=== PATIENT | male | born 1965 | race Caucasian/White ===

== ENCOUNTER 2017-11-25 14:15 | Observation (INO) | payer OTHER ==
--- NOTE | 2017-11-25 14:38 | PDOC ---
History of Present Illness - General Chief Complaint: CVA/TIA Stated Complaint: LT SIDE WEAKNESS Time Seen by Provider: 11/25/17 14:23 - History of Present Illness Initial Comments: 11/25/17 15:30 The patient is a 52 year old male with a history of HTN, HLD, Afib, CVA with residual Left sided deficits who presents for evaluation of left hand weakness. The patient reports onset of left hand weakness and tingling at 10am this morning. He was concerned due to his prior cva prompting his presentation to the ED for evaluation. He notes that he generally has some mild left sided weakness due to his prior cva, but states that it is worse today. He otherwise denies headache, fevers, chills, vision changes, SOB, chest pain, nausea, vomiting, abdominal pain, or changes with urination or bowel movements. tPA Exclusion checklist 3-4.5h - Time Elapsed Date last known well: 11/25/17 Time last known well: 10:00 Elaspsed time: Day(s) and 7 Hour(s) and 6 Minutes - Thrombolytic Therapy Candidate Is patient eligible for thrombolytic therapy: No - Exclusion Criteria 3-4.5 hr SBP greater than 185 or DBP greater than 110mmHg despite tx: No Recent IC/spinal surgery,head trauma or stroke<3mos.: No Hx IC hemorrhage, IC neoplasm, AV malformation or aneurysm: No Active internal bleeding: No Blding diathesis(low plt ct, inc PTT,INR>1.7 or use of NOAC): No Symptoms suggest subarachnoid hemorrhage: No Arterial puncture at noncompressible site in previous 7 days: No Blood glucose concentration less than 50mg/dL (2.7mmol/L): No - Relative Exclusion Criteria 3-4.5 hr Life expectancy <1 yr or severe co-morbid illness: No : No Patient/family refused: No Rapid improvement: No Stroke severity too mild: Yes Recent acute NH (w/in previous 3 months): No Seizure at onset with postictal residual neuro impairments: No Major surgery or serious trauma w/in previous 14 days: No Recent GI or hemorrhage (w/in previous 21 days): No - Add'l Relative Exclusion 3-4.5 hr Age > 80: No NIHSS >25: No - Ineligibility reason(s) Reasons No tPA given: Outside of window - delayed arrival, See reason(s) noted above NIH Stroke Scale - Last Known Well Date/Time & Onset Date Last Known Well: 11/25/17 Time Last Known Well: 10:00 - Initial Evaluation Level of consciousness: Alert Ask patient the month and their age: Answers both correctly Ask patient to open & close eyes; make fist and let go: Obeys both correctly Best gaze (horizontal eye movement): Normal Visual field testing: No visual field loss Facial paresis (Show teeth/raise eyebrows/close eyes tight): Normal symmetrical movement Motor Function: Left Arm: Drift Motor Function: Right Arm: Normal (extends arm 90 (or 45) degrees for 10 seconds without drift Motor Function: Left Leg: Drift Motor Function: Right Leg: Normal (extends leg 30 degrees for 5 seconds without drift) Limb Ataxia: No ataxia Sensory(Use pinprick test arms,legs,trunk,face/side to side): Normal Best language (Describe picture, name items, read sentences): No Aphasia Dysarthria (read several words): Normal articulation Extinction and Inattention: No abnormality - Total Score NIH Stroke Scale Score: 2 Past History - Past Medical History Allergies/Adverse Reactions: Allergies Allergy/AdvReac Type Severity Reaction Status Date / Time No Known Allergies Allergy Verified 11/25/17 15:21 Review of Systems - Review of Systems Comments:: 11/25/17 15:48 Constitutional: No fevers, chills, fatigue, malaise HEENT: No Rhinorrhea, nasal congestion, visual changes Cardiovascular: No chest pain, syncope, palpitations, lightheadedness Respiratory: No Cough, SOB, Hemoptysis, Gastrointestinal: No Abdominal pain, Nausea, Vomiting, Constipation, Diarrhea, Melena Genitourinary: No Dysuria, Frequency, Urgency, Hesitancy, Hematuria, Flank pain Musculoskeletal: No Myalgia, arthralgia Skin: No rashes, itching, bruising, pallor Neurologic: Tingling, Weakness. No Headache, Dizziness, Numbness, Psychiatric: No Hallucinations. No SI or HI *Physical Exam - Physical Exam Comments: 11/25/17 15:48 General Appearance: Nourished. No Apparent Distress HEENT: EOMI, EMIR. No Pharyngeal Erythema, Tonsillar Exudate, Tonsillar Erythema Neck: No Cervical Lymphadenopathy Respiratory/Chest: Lungs Clear, Normal Breath Sounds. No Crackles, Rales, Rhonchi, Wheezing Cardiovascular: Regular Rhythm, Regular Rate. No Murmur, Gallops, Rubs Gastrointestinal/Abdominal: Normal Bowel Sounds, Soft. 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 Sensation to light touch and temperature intact bilaterally. Normal Visual field testing. Normal Finger to Nose and Heel to [facility]varez ED Treatment Course - LABORATORY CBC & Chemistry Diagram: 11/25/17 15:45 11/25/17 15:45 - RADIOLOGY Radiology Studies Ordered: Category Date Time Status HEAD CT (STROKE) [CT] Stat CT Scan 11/25/17 14:32 Ordered Medical Decision Making - Medical Decision Making 11/25/17 15:58 The patient is a 52 year old male with a history of HTN, HLD, Afib, CVA with residual Left sided deficits who presents for evaluation of left hand weakness. Differential includes but is not limited to: CVA, TIA, Peripheral Nerve palsy , infectious, metabolic derangement. Given the patient's history of CVA and presenting symptoms, we will obtain a cbc, cmp, lipid profile, head ct to evaluate for CVA, TIA although the patient is outside the window for TPA. He will likely require admission for further monitoring and neuro eval. We will continue to monitor and reassess. 11/25/17 17:06 CBC, cmp are unremarkable. Troponin is elevated to 0.12. Head CT is negative for any acute process. We discussed the case with Dr. Knight who agrees with admission for MRI evaluate and recommends cardiology consultation as well as treatment with ASA and Lipator. We discussed the case with the admitting team who accepted the patient for admission. *DC/Admit/Observation/Transfer Diagnosis at time of Disposition: Elevated troponin TIA (transient ischemic attack) Qualifiers: Transient cerebral ischemia type: unspecified Qualified Code(s): G45.9 - Transient cerebral ischemic attack, unspecified - Discharge Dispostion Condition at time of disposition: Stable Admit: Yes - Referrals - Patient Instructions - Post Discharge Activity
[2017-11-25 15:25] VITALS: BMI 42.8
[2017-11-25 16:10] LABS: EOS % 5.1 % (0-4.5); HEMATOCRIT 44.8 % (35.4-49); HEMOGLOBIN 15.3 GM/dL (11.7-16.9); LYMPH % 22.6 % (8-40); MCH 28.7 pg (25.7-33.7); MEAN CELL VOLUME 84.4 fl (80-96); MEAN PLT VOLUME 7.3 fl (7.5-11.1); NEUT % 65.3 % (42.8-82.8); PLATELET COUNT 263 K/MM3 (134-434); RBC 5.31 M/mm3 (4.00-5.60); RDW 15.2 % (11.9-15.9); WHITE BLOOD COUNT 9.9 K/mm3 (4.0-10.0)
--- NOTE | 2017-11-25 16:16 | PDOC ---
Attending Attestation - HPI HPI: 11/25/17 16:26 The patient is a 52 year old male, with a significant PMH of hypertension, hyperlipidemia, atrial fibrillation, CVA with residual left sided deficits, who presents to the emergency department with progressively worsening left hand weakness. The patient reports the left hand weakness and tingling began worsening around 10 am this morning. The patient reports he has residual left sided weakness secondary to a previous CVA but reports the left hand weakness is worse today which prompted the ED visit. The patient denies chest pain, shortness of breath, headache and dizziness. Denies fever, chills, nausea, vomit, diarrhea and constipation. Denies dysuria, frequency, urgency and hematuria. Allergies: NKA Documentation prepared by Ar Gonzalez, acting as lpn or medical assistant for Michele Feliciano MD. - Physicial Exam PE: 11/25/17 16:27 Vitals: Triage vital signs reviewed General Appearance: No acute distress, well nourished, well developed Head: Atraumatic Eyes: Pupils equal reactive round, extraocular movement intact Ears: TM's normal bilaterally Nose: Nares patent bilaterally; no nasal congestion Throat: Posterior oropharynx without erythema, mucous membranes moist Neck: Supple; No nuchal rigidity Chest Wall: Nontender Cardiac: Regular rate and rhythm, no murmurs, no rubs, no gallops Lungs: Clear to auscultation bilateral, good air movement bilaterally Abdomen: Soft, nondistended, normal bowel sounds, nontender to palpation Rectal: Exam deferred Extremities: Full range of motion to all extremities, no cyanosis, clubbing, or edema Skin: Warm and dry, no rashes or lesions, no rash, no petechiae Neuro: AOX3, (+) Difficulty finger to nose on left. (+) 4/5 strength in the left upper extremities. (+) Slight tongue deviation to the left. Sensation intact to all extremities <Ar Gonzalez - Last Filed: 11/25/17 16:26> - Resident Resident Name: Petar Medina - ED Attending Attestation I have performed the following: I have examined & evaluated the patient, The case was reviewed & discussed with the resident, I agree w/resident's findings & plan, Exceptions are as noted - Medical Decision Making 52 years old past medical history significant for hyperlipidemia hypertension A. fib CVA residual left-sided deficits presents to the ED with worsening left hand weakness since this morning at 10 AM On examination difficulty with motion picture critic and finger to nose and I H stroke scale score 2 We will obtain head CT consult neurology and admit for further evaluation. Dr. Rankin to follow up labs imaging and reasses. 430pm <Michele Feliciano - Last Filed: 11/25/17 16:33>
[2017-11-25 16:25] LABS: ALBUMIN 3.7 g/dl (3.4-5.0); ANION GAP 10 (8-16); BLOOD UREA NITROGEN 19 mg/dL (7-18); CALCIUM 9.5 mg/dL (8.5-10.1); CHLORIDE 105 mmol/L (98-107); CHOLESTEROL 141 mg/dL (50-200); CO2 26 mmol/L (21-32); CREATININE 0.7 mg/dL (0.7-1.3); GLUCOSE,RANDOM 111 mg/dL (74-106); POTASSIUM 3.9 mmol/L (3.5-5.1); SGOT/AST 28 U/L (15-37); SGPT/ALT 49 U/L (12-78); SODIUM 141 mmol/L (136-145)
[2017-11-25 16:27] LABS: ALK PHOS 60 U/L (45-117); BILIRUBIN,TOTAL 0.3 mg/dL (0.2-1.0); HDL CHOLESTEROL 30 mg/dL (40-60); LDL CHOLESTEROL (ONLY SJRH) 96 mg/dL (5-100); TOT PROT 6.7 g/dl (6.4-8.2); TRIGLYCERIDES 158 mg/dL (35-160)
[2017-11-25 16:29] LABS: INR 1.12 (0.82-1.09); PROTHROMBIN TIME (PATIENT) 12.7 SEC (9.98-11.88)
[2017-11-25] MEDS ORDERED: ATORVASTATIN CA 80 MG TABLET (FP) PO ONE (16:41)
[2017-11-25] MEDS ORDERED: ASPIRIN 81 MG CHEWABLE TABLETS PO ONE (16:41)
[2017-11-25] MEDS ORDERED: ASPIRIN 325 MG TABLET ONE (16:44)
[2017-11-25] MEDS ORDERED: ATORVASTATIN CA 80 MG TABLET (FP) ONE (16:44)
[2017-11-25] MEDS ORDERED: ATORVASTATIN CA 40 MG TABLET (FP) ONE (16:50)
[2017-11-25] MEDS ORDERED: ATORVASTATIN CA 40 MG TABLET (FP) PO ONE (16:55)
--- NOTE | 2017-11-25 17:15 | HP ---
CHIEF COMPLAINT: worsening left arm weakness, numbness and tingling of left hand fingers, unable to make a fist PCP: HISTORY OF PRESENT ILLNESS: Patient is a 52 year old male with a significant past medical history of hypertension, hyperlipidemia, CVA, Atril fibrillation (on Eliquis), left sided deficits 2/2 to previous CVA, sleep apnea and an implanted loop recorder. He presents to the ED to day with worsening left arm weakness. Since his last CVA , patent has had left sided deficits. However, early this morning around 10.a.m., he noted a new onset of worsening left arm pain, with numbness of tingling of all his fingers. He is unable to make a fist, and his arm is painful to movement. He denies any headaches, visual defects, fevers, chills, chest pain or shortness of breath. He denies any trauma to his left arm. On exam, patient was laying in the bed in no acute distress. Noted to have mild congestion best heard on anterior lungs. ER course was notable for: (1) trop 0.12 (2) head ct: mild to mod volume loss and minimal chronic microvascular ischemic disease changes. No gross acute intracranial pathology (3) asa 325, lipitor 40mg, duoneb Recent Travel: PAST MEDICAL HISTORY: as noted above PAST SURGICAL HISTORY: n/a Social History: Smoking: quit 4 years ago Alcohol: denies Drugs: denies Family History: Allergies No Known Allergies Allergy (Verified 11/25/17 15:21) PHYSICAL EXAMINATION Vital Signs - 24 hr 11/25/17 14:15 Temperature 98.3 F Pulse Rate 87 Respiratory 18 Rate Blood Pressure 118/70 O2 Sat by Pulse 95 Oximetry (%) GENERAL: Awake, alert, and fully oriented, in no acute distress. HEAD: Normal with no signs of trauma. EYES: Pupils equal, round and reactive to light, extraocular movements intact, sclera anicteric, conjunctiva clear. No lid lag. EARS, NOSE, THROAT: Ears normal, nares patent, oropharynx clear without exudates. Moist mucous membranes. NECK: Normal range of motion, supple without lymphadenopathy, JVD, or masses. LUNGS: mildly congested, no wheezing, no accessory muscle use, diminished bilateral lungs posteriorly HEART: Regular rate and rhythm, normal S1 and S2 without murmur, rub or gallop. ABDOMEN: Soft, nontender, not distended, normoactive bowel sounds, no guarding, no rebound, no masses. No hepatomegaly or splenomegaly. MUSCULOSKELETAL: Normal range of motion at all joints. No bony deformities or tenderness. No CVA tenderness. UPPER EXTREMITIES: Left arm 2/5, limited ROM. Right arm 5/5 LOWER EXTREMITIES: No peripheral edema. NEUROLOGICAL: Normal speech. Normal gait. PSYCHIATRIC: Cooperative. Good eye contact. Appropriate mood and affect. SKIN: Warm, dry, normal turgor, no rashes or lesions noted, normal capillary refill. Laboratory Results - last 24 hr 11/25/17 11/25/17 11/25/17 15:45 15:45 15:45 WBC 9.9 RBC 5.31 Hgb 15.3 Hct 44.8 MCV 84.4 MCH 28.7 MCHC 34.0 RDW 15.2 Plt Count 263 MPV 7.3 L Neutrophils % 65.3 Lymphocytes % 22.6 Monocytes % 6.0 Eosinophils % 5.1 H Basophils % 1.0 PT with INR 12.70 H INR 1.12 Sodium 141 Potassium 3.9 Chloride 105 Carbon Dioxide 26 Anion Gap 10 BUN 19 H Creatinine 0.7 Creat Clearance w eGFR > 60 Random Glucose 111 H Calcium 9.5 Total Bilirubin 0.3 AST 28 ALT 49 Alkaline Phosphatase 60 Creatine Kinase 180 Troponin I 0.12 H Total Protein 6.7 Albumin 3.7 Triglycerides 158 Cholesterol 141 Total LDL Cholesterol 96 HDL Cholesterol 30 L ASSESSMENT/PLAN: Patient is a 52 year old male with a significant past medical history of hypertension, hyperlipidemia, CVA, Atril fibrillation (on Eliquis), left sided deficits 2/2 to previous CVA, sleep apnea and an implanted loop recorder. He presents to the ED to day with worsening left arm weakness. Since his last CVA , patent has had left sided deficits. However, early this morning around 10.a.m., he noted a new onset of worsening left arm pain, with numbness of tingling of all his fingers. He is unable to make a fist, and his arm is painful to movement. He denies any headaches, visual defects, fevers, chills, chest pain or shortness of breath. He denies any trauma to his left arm. On exam, patient was laying in the bed in no acute distress. Noted to have mild congestion best heard on anterior lungs. Neuro: Rule out CVA/TIA Multiple risk factors: obesity, htn, dm, afib, known previous CVA Head CT negative Brain MRI ordered Neck MRA ordered by neuro Monitor neuro status Swallow eval as per protocol Physical therapy ASA 81mg daily, given ASA 324 in ED Lipitor Lipid panel in a.m. Card: Atrial Fibrillation, chronic Continue home eliquis 5mg BID Monitor on tele Echo Hypertension, chronic On Coreq BID Monitor BP in the setting of possible new CVA HLD, lipid panel in a.m. Elevated trop, on admission Trend trops rule out ACS Echo ordered Pulm: Mild congestion Chest xray Albuterol prn Endocrine Diabetes Mellitus Novolog SS BGMs Hmga1c in a.m. F.E.N. Fluids: PO adequate Electrolytes: monitor Nutrition: diabetic/low salt Prophy: DVT: on eliquis GI: Protonix Disposition. full code. Hospitalist Screening - Colonoscopy Questionnaire Colonoscopy Questionnaire: Colonoscopy Questionnaire
[2017-11-25] MEDS ORDERED: ALBUTEROL SO4 0.083% IH SOL 2.5 MG/3 ML VIAL.NEB. NEB PRN (17:34)
[2017-11-25] MEDS ORDERED: ALBUTEROL SO4 2.5/IPRATROPIUM 0.5 INH SOL 3 ML VIAL.NEB. NEB ONE ×2 (17:45→18:37)
[2017-11-25] MEDS ORDERED: traMADol HCL 50 MG TABLET PO ONE (17:45)
--- NOTE | 2017-11-25 18:31 | CON.NEURO ---
Consult - Alcohol/Substance Use Hx Alcohol Use: No - Smoking History Smoking history: Unknown if ever smoked Have you smoked in the past 12 months: No Home Medications - Allergies Allergies/Adverse Reactions: Allergies Allergy/AdvReac Type Severity Reaction Status Date / Time No Known Allergies Allergy Verified 11/25/17 15:21 Physical Exam-Neuro Vital Signs: Vital Signs Temperature 98.3 F 11/25/17 14:15 Pulse Rate 87 11/25/17 14:15 Respiratory Rate 18 11/25/17 14:15 Blood Pressure 118/70 11/25/17 14:15 O2 Sat by Pulse Oximetry (%) 95 11/25/17 14:15 Labs: CBC, BMP 11/25/17 15:45 11/25/17 15:45 INR, PTT INR 1.12 (0.82-1.09) 11/25/17 15:45 Assessment/Plan cc left arm leg weakness since november 25 morning and drooling of mouth HPI 52 year old male hsitory of DM,HTN , HLD Atrial fibrillation, with left sided residual deficit. He taks aspirin statin and lipitor at home. He has CEA in past on rightside. Patient developed sudden onset left arm weaknss, and leg weakness and he feels there was some tonic movement of left finger. He was also drooling. His ct scan of brain Past Medical History as above Allergies: NKA Medication ? Eliquis , lipitor 40 mg and aspirin 325 mg once a day PMH,SH,ROS reviewed in chart He works for [employer], quiet smoking one year ago Neurological Examination Alert oriented x 3, speech is normal, able to repeat no facial droopiness, eomi, and pupils reactive left hand manager estate weaknes supto 4- and left lower extremity is grade 4 specially hip flexion and knee extension sensation is normal ct head unremarkable Assessment- Suspect stroke on right mca , with worsening of left arm and leg weakness, as there is tonic activity of hand I suspect focal seizure with todds parlaysis is also on differential Plan- continue aspirin and ? eliquis - increase lipitor to 80 mg once a day mri of brain and mra of neck - eeg - if mri negtiave, consider adding keppra empirically neuro check, pt and speech eval thanks for consult, would follow with primary William Knight MD
[2017-11-25] MEDS ORDERED: traMADol HCL 50 MG TABLET ONE (18:37)
[2017-11-25] MEDS ORDERED: ACETAMINOPHEN 325 MG TABLET (FP) PO PRN (20:53)
[2017-11-25] MEDS ORDERED: ATORVASTATIN CA 40 MG TABLET (FP) PO SCH (22:00)
[2017-11-25] MEDS: ATORVASTATIN CA 80 MG TABLET (FP) PO SCH (22:48)
[2017-11-25] MEDS ORDERED: CARVEDILOL 3.125 MG TABLET (FP) ONE (22:54)
[2017-11-25] MEDS: APIXABAN 5 MG TABLET PO SCH (23:00)
[2017-11-25] MEDS: CARVEDILOL 6.25 MG TABLET (FP) PO SCH (23:01)
[2017-11-25] MEDS: INSULIN SLIDING SCALE (NOVOLOG) 1 VIAL SQ SCH (23:28)
[2017-11-25] MEDS ORDERED: oxyCODONE HCL 5 MG TABLET PO ONE (23:45)
[2017-11-26] MEDS ORDERED: INSULIN (NOVOLOG) ASPART 100 UNITS/ML 10ML VIAL ONE (06:00)
[2017-11-26] MEDS: INSULIN SLIDING SCALE (NOVOLOG) 1 VIAL SQ SCH ×4 (06:03→21:37)
--- NOTE | 2017-11-26 09:30 | EKG ---
Test Reason : Blood Pressure : / mmHG Vent. Rate : 087 BPM Atrial Rate : 087 BPM P-R Int : 176 ms QRS Dur : 096 ms QT Int : 368 ms P-R-T Axes : 037 -19 049 degrees QTc Int : 442 ms NORMAL SINUS RHYTHM INCOMPLETE RIGHT BUNDLE BRANCH BLOCK INFERIOR INFARCT , AGE UNDETERMINED ABNORMAL ECG NO PREVIOUS ECGS AVAILABLE Confirmed by CARMEN RAMIREZ MD ([id number]) on 11/26/2017 9:29:37 AM Referred By: Confirmed By:CARMEN RAMIREZ MD
[2017-11-26] MEDS ORDERED: PT OWN MED DRAWER 7, Y5N ONE (09:50)
[2017-11-26 09:53] LABS: URINE APPEARANCE CLEAR; URINE BILIRUBIN NEGATIVE (<2.0 mg/dL); URINE BLOOD NEGATIVE (NEGATIVE); URINE COLOR LTYELLOW; URINE GLUCOSE (UA) 3+ (NEGATIVE); URINE KETONE NEGATIVE (NEGATIVE); URINE LEUK ESTERASE NEGATIVE (NEGATIVE); URINE NITRITE NEGATIVE (NEGATIVE); URINE UROBILINOGEN NEGATIVE mg/dL (0.2-1.0)
[2017-11-26] MEDS: traMADol HCL 50 MG TABLET PO PRN ×2 (09:53→21:39)
[2017-11-26] MEDS: APIXABAN 5 MG TABLET PO SCH ×2 (09:53→21:36)
[2017-11-26] MEDS: ASPIRIN COATED 81 MG TABLET.EC PO SCH (09:53)
[2017-11-26] MEDS: CARVEDILOL 6.25 MG TABLET (FP) PO SCH ×2 (09:53→21:36)
[2017-11-26] MEDS: SERTRALINE HCL 50 MG TABLET (FP) PO SCH (09:56)
[2017-11-26] MEDS: LISINOPRIL 20 MG TABLET (FP) PO SCH (09:56)
[2017-11-26 09:59] LABS: URINE PROTEIN 2+ (NEGATIVE)
[2017-11-26 10:01] LABS: URINE MUCUS RARE
--- NOTE | 2017-11-26 11:07 | CONSULT ---
Admitting History and Physical - Primary Care Physician PCP: Iirs Bates - Admission History of Present Illness: Per EMR: Patient is a 52 year old male with a significant past medical history of hypertension, hyperlipidemia, CVA, Atril fibrillation (on Eliquis), left sided deficits 2/2 to previous CVA. He presents to the ED to day with worsening left arm weakness. Since his last CVA, patent has had left sided deficits. However , early this morning around 10.a.m., he noted a new onset of worsening left arm pain, with numbness of tingling of all his fingers. He is unable to make a fist , and his arm is painful to movement. He denies any headaches, visual defects, fevers, chills, chest pain or shortness of breath. He denies any trauma to his left arm. On exam, patient was laying in the bed in no acute distress. Noted to have mild congestion best heard on anterior lungs. He feels his speech and swallowing are unchanged. Upon review of pt's medical history and discussing PMH, I enquired about audible nasal emission/snorting sounds, suspecting possible velar weakness post stroke. Pt reports he has severe sleep apnea, sleeps with CPAP machine nightly on one of the highest settings and takes 2 medications for ramy/sleep. He then said "Maybe that's why I'm so tired today." Reported to nursing. History Source: Patient, Medical Record Limitations to Obtaining History: No Limitations - Smoking History Smoking history: Former smoker Have you smoked in the past 12 months: No If you are a former smoker, when did you quit?: 5 years ago - Alcohol/Substance Use Hx Alcohol Use: No History - Admission Reason For Visit: ELEVATED TROPONIN/ TRANSIENT CEREBAL ISCHEMIA - Diagnostics X-ray: Report Reviewed CT Scan: Report Reviewed (mild to mod volume loss and minimal chronic microvascular ischemic disease changes. No gross acute intracranial pathology) - General Mental Status: Alert and Oriented, Awake and Alert, Able to Follow Commands Attention: Intact Ability to Follow Directions: Excellent Head/Neck Control: WFL - Hearing Hearing: Normal Hearing Aide: No Speech Evaluation - Communication Primary Language: GEORGIAN Communication: Yes: Within Normal Limits, Dysarthria Oral Expression Ability: Yes: Mild Impairment (Mild imprecision, snorting/weak velum?.Baseline? Denies altered speech.) - Speech Production Able to Make Needs Known: Yes: Mildly Impaired - Speech Characteristics Voice Loudness: Normal Voice Pitch: Yes: Mildly Low Voice Phonatory-based Quality: Yes: Normal Speech Clarity: < 100% Nasal Resonance: Nasal Emission Articulation: Yes: Imprecise (slight) - Language/Auditory Comprehension Follows: Yes: 2 Stage Simple Commands Observation: Able to respond to yes/no queries: Yes, Yes/No Confusion: No, Comprehends Conversational Speech: Yes - Language/Verbal Expression Able to Respond to Simple Queries: Yes: WNL Able to Communicate Wants and Needs: Yes: WNL Functional Communication Status: Yes: WNL - Memory/Perception snf Memory: Yes: WNL Short Term Memory: Yes: WNL - Swallow Evaluation/Bedside Assessment Current Nutritional Intake: Regular, Thin Liquids Oral Secretions: Yes: WFL Dentition: Yes: Adequate, Dental Appliance Upper, Dental Fit Adequate Facial Symmetry at Rest: Symmetrical Facial Symmetry on Retraction: Symmetrical Facial Movement: Controlled Jaw Position: Open at Rest Against Resistance Opening: Normal Against Resistance Closing: Normal Pucker Lips: Normal Smile: Normal Lingual Movement: Normal, Symmetric Lingual Speed of Movement: Normal Lingual Movement Strgth Against Opposition: Normal Lingual Movement Characteristics: Normal Velopharyngeal Movement: Reduced Elevation (possibly untimely. Able to impound air into oral cavity.) Labial Seal: WFL Chewing: WFL Oral Prep Time: WFL A-P Transit: WFL Pocketing: None Timing of Swallow: WFL Coughing/Throat Clear: No Change in Voice: No Recommendations - Speech Evaluation, Impression/Plan Impression: Pt with h/o significant Sleep apnea. Sleeps with CPAP machine. Swallowing overtly intact. Mild dysarthria? reports this is his baseline? old cva.Cognition intact. - Dysphagia Impressions/Plan Dysphagia Impressions: No Impairment *Silent aspiration: cannot be R/O at bedside Recommendations: Modified Barium Swallow (if congestion, fever, signs of difficulty.), Other (consult/CPAP machine) - Recommendations Diet Consistency: Regular Medication Administration: Whole with water Liquids: Thin Liquids
--- NOTE | 2017-11-26 11:11 | CON.CARD ---
Cardiology Consult (text) - Consultation Consultation Note: cc: left hand pain/weakness hpi: 52 m hx htn, hld, pafib, cva, cea here with left hand pain/weakness. No cp, sob, palps, dizzy, loc, pnd, orthopnea, le edema. Being evaluated by neuro , no acute cva suspected. 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 pmh: per hpi psh: cea social: no tob fam: no premature cad, scd ros: per hpi; no nvd, cough, mont[place], vision changes, gib ,hematuria, dysuria meds: Home Medications Medication Instructions Recorded Apixaban [Eliquis] 5 mg PO BID 11/25/17 Armodafinil [Nuvigil] 200 mg PO DAILY 11/25/17 Aspirin [ASA -] 325 mg PO DAILY 11/25/17 Atorvastatin Ca [Lipitor] 40 mg PO DAILY 11/25/17 Bupropion HCl [Wellbutrin Xl] 300 mg PO DAILY 11/25/17 Carvedilol [Coreg] 6.25 mg PO BID 11/25/17 Empagliflozin [Jardiance] 10 mg PO DAILY 11/25/17 Fenofibrate,Micronized 130 mg PO DAILY 11/25/17 [Fenofibrate] Insulin Regular, Human [Humulin R 120 unit SQ BID 11/25/17 U-500 Kwikpen] Lisinopril 20 mg PO DAILY 11/25/17 Sennosides [Senna] 8.6 mg PO DAILY 11/25/17 Sertraline HCl 100 mg PO DAILY 11/25/17 metFORMIN XR [Glucophage *Xr* -] 750 mg PO DAILY 11/25/17 pe: Vital Signs Period Temp Pulse Resp BP Sys/Yoder Pulse Ox Last 24 Hr 97.9 F-98.9 F 80-92 16-20 100-133/65-80 94-95 nad no jvd rrr s1s2 no mrg cta bl nl eff aaox3 no le e/c/c abd nt nd pos bs no jaundice diaphoresis pos dp pt Laboratory Last Values WBC 9.9 K/mm3 (4.0-10.0) 11/25/17 15:45 RBC 5.31 M/mm3 (4.00-5.60) 11/25/17 15:45 Hgb 15.3 GM/dL (11.7-16.9) 11/25/17 15:45 Hct 44.8 % (35.4-49) 11/25/17 15:45 MCV 84.4 fl (80-96) 11/25/17 15:45 MCH 28.7 pg (25.7-33.7) 11/25/17 15:45 MCHC 34.0 g/dl (32.0-35.9) 11/25/17 15:45 RDW 15.2 % (11.9-15.9) 11/25/17 15:45 Plt Count 263 K/MM3 (134-434) 11/25/17 15:45 MPV 7.3 fl (7.5-11.1) L 11/25/17 15:45 Neutrophils % 65.3 % (42.8-82.8) 11/25/17 15:45 Lymphocytes % 22.6 % (8-40) 11/25/17 15:45 Monocytes % 6.0 % (3.8-10.2) 11/25/17 15:45 Eosinophils % 5.1 % (0-4.5) H 11/25/17 15:45 Basophils % 1.0 % (0-2.0) 11/25/17 15:45 PT with INR 12.70 SEC (9.98-11.88) H 11/25/17 15:45 INR 1.12 (0.82-1.09) 11/25/17 15:45 Sodium 141 mmol/L (136-145) 11/25/17 15:45 Potassium 3.9 mmol/L (3.5-5.1) 11/25/17 15:45 Chloride 105 mmol/L (98-107) 11/25/17 15:45 Carbon Dioxide 26 mmol/L (21-32) 11/25/17 15:45 Anion Gap 10 (8-16) 11/25/17 15:45 BUN 19 mg/dL (7-18) H 11/25/17 15:45 Creatinine 0.7 mg/dL (0.7-1.3) 11/25/17 15:45 Creat Clearance w eGFR > 60 (>60) 11/25/17 15:45 POC Glucometer 153 UNITS (80-120) 11/26/17 05:42 Random Glucose 111 mg/dL (74-106) H 11/25/17 15:45 Calcium 9.5 mg/dL (8.5-10.1) 11/25/17 15:45 Total Bilirubin 0.3 mg/dL (0.2-1.0) 11/25/17 15:45 AST 28 U/L (15-37) 11/25/17 15:45 ALT 49 U/L (12-78) 11/25/17 15:45 Alkaline Phosphatase 60 U/L (45-117) 11/25/17 15:45 Creatine Kinase 180 IU/L (39-308) 11/25/17 15:45 Creatine Kinase Index 1.7 % (0.0-5.0) 11/25/17 15:45 CK-MB (CK-2) 3.102 ng/mL (0.5-3.6) 11/25/17 15:45 Troponin I 0.11 ng/ml (0.00-0.05) H 11/25/17 23:13 Total Protein 6.7 g/dl (6.4-8.2) 11/25/17 15:45 Albumin 3.7 g/dl (3.4-5.0) 11/25/17 15:45 Triglycerides 158 mg/dL (35-160) 11/25/17 15:45 Cholesterol 141 mg/dL (50-200) 11/25/17 15:45 Total LDL Cholesterol 96 mg/dL (5-100) 11/25/17 15:45 HDL Cholesterol 30 mg/dL (40-60) L 11/25/17 15:45 Urine Color Ltyellow 11/26/17 04:21 Urine Appearance Clear 11/26/17 04:21 Urine pH 5.0 (5.0-8.0) 11/26/17 04:21 Ur Specific [place] 1.028 (1.001-1.035) 11/26/17 04:21 Urine Protein 2+ (NEGATIVE) H 11/26/17 04:21 Urine Glucose (UA) 3+ (NEGATIVE) H 11/26/17 04:21 Urine Ketones Negative (NEGATIVE) 11/26/17 04:21 Urine Blood Negative (NEGATIVE) 11/26/17 04:21 Urine Nitrite Negative (NEGATIVE) 11/26/17 04:21 Urine Bilirubin Negative (<2.0 mg/dL) 11/26/17 04:21 Urine Urobilinogen Negative mg/dL (0.2-1.0) 11/26/17 04:21 Ur Leukocyte Esterase Negative (NEGATIVE) 11/26/17 04:21 Urine WBC (Auto) 1 /hpf (3-5) 11/26/17 04:21 Urine RBC (Auto) <1 /hpf (0-3) 11/26/17 04:21 Urine Mucus Rare 11/26/17 04:21 cxr: clear lungs ecg: sr, nl intervals, irbbb, no st changes tele: sr echo 11/2017: tds; nl lv/rv, no sig valve path, mod lae a/p: 52 m hx htn, hld, pafib, cva, cea here with left hand pain/weakness. htn: -cont home arlene, coreg pafib: -in sr -cont home bb -cont ac with eliquis hld: -cont statin cva: -plans per neuro borderline trops: -borderline values with nl ck, not c/w acs -echo with nl lvef -pt with no cardiac sxs -no signs acs
--- NOTE | 2017-11-26 14:01 | PN ---
Progress Note (short form) - Note Progress Note: PULMONARY CONSULTATIN DICTATED 11/26/17 IMP CVA PAF HTN COPD MIRIAM ON CPAP DM + TROPONIN MORBID OBESITY PLAN AC ASA CPAP [id number] AT NIGHT NEURO W/U PER NEUROLOGY TREND TROPONIN INHALED BRONCHODILATORS PRN PFTS OUTPATIENT DR ARELLANO Problem List - Problems (1) CVA (cerebral vascular accident) Code(s): I63.9 - CEREBRAL INFARCTION, UNSPECIFIED (2) Elevated troponin Code(s): R74.8 - ABNORMAL LEVELS OF OTHER SERUM ENZYMES (3) PAF (paroxysmal atrial fibrillation) Code(s): I48.0 - PAROXYSMAL ATRIAL FIBRILLATION (4) Sleep apnea Code(s): G47.30 - SLEEP APNEA, UNSPECIFIED (5) HTN (hypertension) Code(s): I10 - ESSENTIAL (PRIMARY) HYPERTENSION (6) HLD (hyperlipidemia) Code(s): E78.5 - HYPERLIPIDEMIA, UNSPECIFIED (7) Morbid obesity Code(s): E66.01 - MORBID (SEVERE) OBESITY DUE TO EXCESS CALORIES (8) COPD (chronic obstructive pulmonary disease) Code(s): J44.9 - CHRONIC OBSTRUCTIVE PULMONARY DISEASE, UNSPECIFIED
--- NOTE | 2017-11-26 14:33 | PN ---
Physical Exam: SUBJECTIVE: Patient seen and examined at the bedside. Patient still having left arm deficit, denies trauma. 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 OBJECTIVE: Plan was to repeat imaging with brain MRI, and neck MRA, however pt has an implanted loop recorder. Will need [employer] to interrogate device prior to MRI as there is a risk of losing all information as well as damage to device ( discussed with MRI). Also discussed with Neuro. Will order CT Brain with contrast now as patient's symptoms persist.Will image left ext for DVT and xray same. Vital Signs Period Temp Pulse Resp BP Sys/Yoder Pulse Ox Last 24 Hr 97.9 F-98.9 F 79-92 16-20 100-133/65-80 94-95 GENERAL: The patient is awake, alert, and fully oriented, in no acute distress. HEAD: Normal with no signs of trauma. EYES: PERRL, extraocular movements intact, sclera anicteric, conjunctiva clear. No ptosis. ENT: Ears normal, nares patent, oropharynx clear without exudates, moist mucous membranes. NECK: Trachea midline, full range of motion, supple. LUNGS: Breath sounds equal, clear to auscultation bilaterally, no wheezes, no crackles, no accessory muscle use. HEART: Regular rate and rhythm, S1, S2 without murmur, rub or gallop. ABDOMEN: Soft, nontender, nondistended, normoactive bowel sounds, no guarding, no rebound, no hepatosplenomegaly, no masses. EXTREMITIES: 2+ pulses, warm, well-perfused, no edema. NEUROLOGICAL: Cranial nerves II through XII grossly intact. Normal speech, gait not observed. PSYCH: Normal mood, normal affect. SKIN: Warm, dry, normal turgor, no rashes or lesions noted Laboratory Results - last 24 hr 11/25/17 11/25/17 11/25/17 15:45 15:45 15:45 WBC 9.9 RBC 5.31 Hgb 15.3 Hct 44.8 MCV 84.4 MCH 28.7 MCHC 34.0 RDW 15.2 Plt Count 263 MPV 7.3 L Neutrophils % 65.3 Lymphocytes % 22.6 Monocytes % 6.0 Eosinophils % 5.1 H Basophils % 1.0 PT with INR 12.70 H INR 1.12 Sodium 141 Potassium 3.9 Chloride 105 Carbon Dioxide 26 Anion Gap 10 BUN 19 H Creatinine 0.7 Creat Clearance w eGFR > 60 POC Glucometer Random Glucose 111 H Calcium 9.5 Total Bilirubin 0.3 AST 28 ALT 49 Alkaline Phosphatase 60 Creatine Kinase 180 Creatine Kinase Index 1.7 CK-MB (CK-2) 3.102 Troponin I 0.12 H Total Protein 6.7 Albumin 3.7 Triglycerides 158 Cholesterol 141 Total LDL Cholesterol 96 HDL Cholesterol 30 L Urine Color Urine Appearance Urine pH Ur Specific [place] Urine Protein Urine Glucose (UA) Urine Ketones Urine Blood Urine Nitrite Urine Bilirubin Urine Urobilinogen Ur Leukocyte Esterase Urine WBC (Auto) Urine RBC (Auto) Urine Mucus 11/25/17 11/25/17 11/26/17 23:08 23:13 04:21 WBC RBC Hgb Hct MCV MCH MCHC RDW Plt Count MPV Neutrophils % Lymphocytes % Monocytes % Eosinophils % Basophils % PT with INR INR Sodium Potassium Chloride Carbon Dioxide Anion Gap BUN Creatinine Creat Clearance w eGFR POC Glucometer 173 Random Glucose Calcium Total Bilirubin AST ALT Alkaline Phosphatase Creatine Kinase Creatine Kinase Index CK-MB (CK-2) Troponin I 0.11 H Total Protein Albumin Triglycerides Cholesterol Total LDL Cholesterol HDL Cholesterol Urine Color Ltyellow Urine Appearance Clear Urine pH 5.0 Ur Specific [place] 1.028 Urine Protein 2+ H Urine Glucose (UA) 3+ H Urine Ketones Negative Urine Blood Negative Urine Nitrite Negative Urine Bilirubin Negative Urine Urobilinogen Negative Ur Leukocyte Esterase Negative Urine WBC (Auto) 1 Urine RBC (Auto) <1 Urine Mucus Rare 11/26/17 11/26/17 05:42 11:49 WBC RBC Hgb Hct MCV MCH MCHC RDW Plt Count MPV Neutrophils % Lymphocytes % Monocytes % Eosinophils % Basophils % PT with INR INR Sodium Potassium Chloride Carbon Dioxide Anion Gap BUN Creatinine Creat Clearance w eGFR POC Glucometer 153 171 Random Glucose Calcium Total Bilirubin AST ALT Alkaline Phosphatase Creatine Kinase Creatine Kinase Index CK-MB (CK-2) Troponin I Total Protein Albumin Triglycerides Cholesterol Total LDL Cholesterol HDL Cholesterol Urine Color Urine Appearance Urine pH Ur Specific [place] Urine Protein Urine Glucose (UA) Urine Ketones Urine Blood Urine Nitrite Urine Bilirubin Urine Urobilinogen Ur Leukocyte Esterase Urine WBC (Auto) Urine RBC (Auto) Urine Mucus Active Medications Generic Name Dose Route Start Last Admin Trade Name Freq PRN Reason Stop Dose Admin Acetaminophen 650 mg 11/25/17 20:53 04/13/18 09:54 Tylenol - PO 650 mg Q6H PRN Administration PAIN LEVEL 4 - 6 Albuterol Sulfate 1 amp 11/25/17 17:34 Ventolin 0.083% Nebulizer Soln - NEB Q8H PRN SHORT OF BREATH/WHEEZING Apixaban 5 mg 11/25/17 22:00 11/26/17 09:53 Eliquis - PO 5 mg BID LYNN Administration Aspirin 81 mg 11/26/17 10:00 11/26/17 09:53 Ecotrin - PO 81 mg DAILY LYNN Administration Atorvastatin Calcium 80 mg 11/25/17 22:00 11/25/17 22:48 Lipitor - PO Not Given HS LYNN Bupropion HCl 300 mg 11/26/17 10:00 11/26/17 09:56 Wellbutrin Xl - PO 300 mg DAILY LYNN Administration Carvedilol 6.25 mg 11/25/17 22:00 11/26/17 09:53 Coreg - PO 6.25 mg BID LYNN Administration Insulin Aspart 1 vial 11/25/17 22:00 11/26/17 11:50 Novolog Vial Sliding Scale - SQ 2 units ACHS LYNN Administration Protocol Lisinopril 20 mg 11/26/17 10:00 11/26/17 09:56 Prinivil PO 20 mg DAILY LYNN Administration Sertraline HCl 100 mg 11/26/17 10:00 11/26/17 09:56 Zoloft - PO 100 mg DAILY LYNN Administration Tramadol HCl 50 mg 11/25/17 20:52 11/26/17 09:53 Ultram - PO 50 mg Q6H PRN Administration PAIN LEVEL 7 - 10 ASSESSMENT/PLAN: Patient is a 52 year old male with a significant past medical history of hypertension, hyperlipidemia, CVA, Atril fibrillation (on Eliquis), left sided deficits 2/2 to previous CVA, severe sleep apnea and an implanted loop recorder. He presents to the ED to day with worsening left arm weakness. Since his last CVA, patent has had left sided deficits. However, early this morning around 10.a.m., he noted a new onset of worsening left arm pain, with numbness of tingling of all his fingers. He is unable to make a fist, and his arm is painful to movement. He denies any headaches, visual defects, fevers, chills, chest pain or shortness of breath. He denies any trauma to his left arm. On exam, patient was laying in the bed in no acute distress. Noted to have mild congestion best heard on anterior lungs. Has hx of sleep apnea, will order CPAP. Neuro: Rule out CVA/TIA Multiple risk factors: obesity, htn, dm, afib, known previous CVA Head CT negative Plan was to repeat imaging with brain MRI, and neck MRA, however pt has an implanted loop recorder. Will need [employer] to interrogate device prior to MRI as there is a risk of losing all information as well as damage to device ( discussed with MRI). Also discussed with Neuro. Will order CT Brain with contrast now as patient's symptoms persist. Further will image left ext for DVT and xray same. Monitor neuro status No swallow deficit Physical therapy ordered ASA 81mg daily Lipitor 80mg daily Lipid panel reviewed Card: Atrial Fibrillation, chronic Continue home eliquis 5mg BID Monitor on tele Echo suboptimal, LV mod dilated, no pericardial effusion Hypertension, chronic On Coreq BID Monitor BP in the setting of possible new CVA HLD, chronic On Lipitor Elevated trop, on admission Trops flat, as per cardiology not ACS Pulm: Severe sleep apnea CPAP ordered Pulm on board Endocrine Diabetes Mellitus Novolog SS BGMs Hmga1c 7.7 F.E.N. Fluids: PO adequate Electrolytes: monitor Nutrition: diabetic/low salt Prophy: DVT: on eliquis GI: Protonix Disposition. full code. Visit type - Emergency Visit Emergency Visit: Yes ED Registration Date: 11/25/17 Care time: The patient presented to the Emergency Department on the above date and was hospitalized for further evaluation of their emergent condition. - New Patient This patient is new to me today: No - Critical Care Critical Care patient: No - Discharge Referral Referred to [facility] Med P.C.: No
--- NOTE | 2017-11-26 15:13 | PN ---
Progress Note (short form) - Note Progress Note: HPI 52 year old male hsitory of DM,HTN , HLD Atrial fibrillation, with mild residual left sided residual deficit. He taks aspirin statin ,eliquis and lipitor at home. He has CEA in past on rightside. Patient developed sudden onset left arm weaknss, and leg weakness and he feels there was some tonic movement of left finger. He was also drooling. Initial ct scan of brain was normal He has loop recorder in place and loop data is being downloaded before mri of brain. He is able to walk around and swallow. 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
--- NOTE | 2017-11-26 21:09 | CONS ---
DATE OF CONSULTATION: 11/26/2017 PULMONARY CONSULTATION REFERRING PHYSICIAN: Krunal Reed M.D. HISTORY OF PRESENT ILLNESS: The patient is a 52-year-old white male with a past medical history of PAF, history of CVA with left-sided weakness, a history of right carotid endarterectomy, hypertension, hyperlipidemia, COPD, longstanding history of tobacco use 2-3 packs per day for many years, quit 4 years ago, obstructive sleep apnea on CPAP, unknown what pressure, admitted to [facility] with a complaint of left hand weakness. He states that the morning of admission, he started developing left hand weakness and tingling at approximately 10 a.m. He presented to the emergency room with the above. In the emergency room, he was noted to have left-sided weakness due to his previous CVA. He underwent a CT of the head which revealed no acute pathology. He was evaluated by Neurology. The patient does complain of shortness of breath with exertion. He denies any chest pains or palpitations, denies any nausea, vomiting or diaphoresis. Denied any hemoptysis. He says he has had a floater in his left eye for the past 2-3 days. He denies any history of DVT or PE. There is no history of recent travel. He denies any history of occupational exposure to chemicals or fumes. He has history of obstructive sleep apnea. He states that he sleeps well on CPAP, though he is unsure exactly what pressure he is on. PAST MEDICAL HISTORY: Again includes hypertension, hyperlipidemia, paroxysmal atrial fibrillation, CVA, residual left-sided weakness status post CEA, COPD, obstructive sleep apnea. REVIEW OF SYSTEMS: No orthopnea. Positive dyspnea with exertion. No chest pain, no palpitations. Positive left hand weakness. CURRENT MEDICATIONS: Tylenol, Prinivil, Eliquis, Wellbutrin, Zoloft, albuterol, Coreg, Lipitor, NovoLog, Ecotrin and Ultram. PHYSICAL EXAMINATION: General: The patient is an obese male, wide awake, alert, in no acute distress. Vital signs: He is afebrile. Blood pressure 133/80, respiratory rate 20, O2 saturation 94% on room air. HEENT: Head is normocephalic, atraumatic. Neck: Supple. Heart: Regular. S1, S2. Chest: Diminished breath sounds bilaterally. Abdomen: Soft. Bowel sounds positive. Extremities: No cyanosis or edema. LABORATORY: WBC is 9.9, hemoglobin 15.3, hematocrit 44.8 with a platelet count of 263,000. INR is 1.12, BUN 19, creatinine 0.7. Troponin is 0.11. A head CT shows no acute process. On chest x-ray, no acute pathology, no infiltrates, no masses. IMPRESSION: 1. Left hand weakness, likely cerebrovascular accident. 2. Paroxysmal atrial fibrillation. 3. History of CEA. 4. Chronic obstructive pulmonary disease. 5. Obstructive sleep apnea on CPAP. 6. Hyperlipidemia. 7. Hypertension. 8. Diabetes. 9. Positive troponins. PLAN: 1. Continue workup as per Neurology. 2. Continue anticoagulation. 3. Supplemental O2 p.r.n. 4. Trend troponins. 5. CPAP at night. 6. Further cardiac workup as per Cardiology. 7. Recommend yearly low-dose CT scan of chest for lung cancer screening since patient has a longstanding history of tobacco use. 8. PFTs as an outpatient. ANGELA ARELLANO M.D. [id number]
[2017-11-26] MEDS: ATORVASTATIN CA 80 MG TABLET (FP) PO SCH (21:36)
[2017-11-26 22:33] LABS: BASO % 0.5 % (0-2.0); EOS % 4.9 % (0-4.5); HEMATOCRIT 45.8 % (35.4-49); HEMOGLOBIN 15.3 GM/dL (11.7-16.9); LYMPH % 24.3 % (8-40); MCH 28.2 pg (25.7-33.7); MCHC 33.4 g/dl (32.0-35.9); MEAN CELL VOLUME 84.4 fl (80-96); MEAN PLT VOLUME 7.5 fl (7.5-11.1); MONO % 6.3 % (3.8-10.2); PLATELET COUNT 269 K/MM3 (134-434); RBC 5.43 M/mm3 (4.00-5.60); RDW 15.5 % (11.9-15.9); WHITE BLOOD COUNT 8.8 K/mm3 (4.0-10.0)
[2017-11-26 23:18] LABS: ALBUMIN 3.6 g/dl (3.4-5.0); ANION GAP 6 (8-16); BILIRUBIN,TOTAL 0.4 mg/dL (0.2-1.0); BLOOD UREA NITROGEN 16 mg/dL (7-18); CALCIUM 8.6 mg/dL (8.5-10.1); CHLORIDE 104 mmol/L (98-107); CO2 28 mmol/L (21-32); CREATININE 0.7 mg/dL (0.7-1.3); GLUCOSE,RANDOM 157 mg/dL (74-106); MAGNESIUM 1.9 mg/dL (1.8-2.4); POTASSIUM 3.9 mmol/L (3.5-5.1); SGOT/AST 25 U/L (15-37); SGPT/ALT 44 U/L (12-78); SODIUM 138 mmol/L (136-145)
[2017-11-26 23:21] LABS: ALK PHOS 59 U/L (45-117)
[2017-11-27] MEDS: INSULIN SLIDING SCALE (NOVOLOG) 1 VIAL SQ SCH ×3 (06:04→17:09)
[2017-11-27] MEDS: APIXABAN 5 MG TABLET PO SCH (09:35)
[2017-11-27] MEDS: ASPIRIN COATED 81 MG TABLET.EC PO SCH (09:35)
[2017-11-27] MEDS: CARVEDILOL 6.25 MG TABLET (FP) PO SCH (09:35)
[2017-11-27] MEDS: LISINOPRIL 20 MG TABLET (FP) PO SCH (09:36)
[2017-11-27] MEDS: SERTRALINE HCL 50 MG TABLET (FP) PO SCH (09:36)
--- NOTE | 2017-11-27 10:23 | PN ---
Progress Note, Physician History of Present Illness: No complaints No chest pain Tele: NSR 80s - Current Medication List Current Medications: Active Medications Acetaminophen (Tylenol -) 650 mg PO Q6H PRN PRN Reason: PAIN LEVEL 4 - 6 Last Admin: 11/26/17 09:54 Dose: 650 mg Albuterol Sulfate (Ventolin 0.083% Nebulizer Soln -) 1 amp NEB Q8H PRN PRN Reason: SHORT OF BREATH/WHEEZING Apixaban (Eliquis -) 5 mg PO BID [facility] Last Admin: 11/27/17 09:35 Dose: 5 mg Aspirin (Ecotrin -) 81 mg PO DAILY [facility] Last Admin: 11/27/17 09:35 Dose: 81 mg Atorvastatin Calcium (Lipitor -) 80 mg PO HS [facility] Last Admin: 11/26/17 21:36 Dose: 80 mg Bupropion HCl (Wellbutrin Xl -) 300 mg PO DAILY [facility] Last Admin: 11/27/17 09:37 Dose: 300 mg Carvedilol (Coreg -) 6.25 mg PO BID [facility] Last Admin: 11/27/17 09:35 Dose: 6.25 mg Insulin Aspart (Novolog Vial Sliding Scale -) 1 vial SQ ACHS [facility] PRN Reason: Protocol Last Admin: 11/27/17 06:04 Dose: 2 units Lisinopril (Prinivil) 20 mg PO DAILY [facility] Last Admin: 11/27/17 09:36 Dose: 20 mg Sertraline HCl (Zoloft -) 100 mg PO DAILY [facility] Last Admin: 11/27/17 09:36 Dose: 100 mg Tramadol HCl (Ultram -) 50 mg PO Q6H PRN PRN Reason: PAIN LEVEL 7 - 10 Last Admin: 11/26/17 21:39 Dose: 50 mg - Objective Vital Signs: Vital Signs Temperature 99.3 F 11/27/17 09:00 Pulse Rate 86 11/27/17 09:00 Respiratory Rate 24 11/27/17 09:00 Blood Pressure 138/62 11/27/17 09:00 O2 Sat by Pulse Oximetry (%) 94 L 11/27/17 08:00 Constitutional: Yes: No Distress, Calm Eyes: Yes: WNL HENT: Yes: WNL Neck: Yes: WNL Cardiovascular: Yes: Regular Rate and Rhythm Respiratory: Yes: CTA Bilaterally Gastrointestinal: Yes: WNL, Normal Bowel Sounds Extremities: Yes: WNL Edema: No Labs: CBC, BMP 11/26/17 21:45 11/26/17 21:45 INR, PTT INR 1.12 (0.82-1.09) 11/25/17 15:45 Assessment/Plan a/p: 52 m hx htn, hld, pafib, cva, cea here with left hand pain/weakness. htn: -cont home arlene, coreg pafib: -in sr -cont home bb -cont ac with eliquis hld: -cont statin cva: -plans per neuro borderline trops: -borderline values with nl ck, not c/w acs -echo with nl lvef -pt with no cardiac sxs -no signs acs
[2017-11-27 14:31] VITALS: PULSE 82; TEMP 98.6
--- NOTE | 2017-11-27 14:41 | PN ---
Progress Note (short form) - Note Progress Note: No CP or SOB. No acute events overnight. Intake & Output 11/24/17 11/25/17 11/26/17 11/27/17 23:59 23:59 23:59 23:59 Intake Total 250 1060 690 Balance 250 1060 690 Weight 316 lb Last Vital Signs Temp Pulse Resp BP Pulse Ox 98.6 F 82 20 108/49 94 L 11/27/17 14:29 11/27/17 14:29 11/27/17 14:29 11/27/17 14:29 11/27/17 08:00 Active Medications Acetaminophen (Tylenol -) 650 mg PO Q6H PRN PRN Reason: PAIN LEVEL 4 - 6 Last Admin: 11/26/17 09:54 Dose: 650 mg Albuterol Sulfate (Ventolin 0.083% Nebulizer Soln -) 1 amp NEB Q8H PRN PRN Reason: SHORT OF BREATH/WHEEZING Apixaban (Eliquis -) 5 mg PO BID [facility] Last Admin: 11/27/17 09:35 Dose: 5 mg Aspirin (Ecotrin -) 81 mg PO DAILY [facility] Last Admin: 11/27/17 09:35 Dose: 81 mg Atorvastatin Calcium (Lipitor -) 80 mg PO HS [facility] Last Admin: 11/26/17 21:36 Dose: 80 mg Bupropion HCl (Wellbutrin Xl -) 300 mg PO DAILY [facility] Last Admin: 11/27/17 09:37 Dose: 300 mg Carvedilol (Coreg -) 6.25 mg PO BID [facility] Last Admin: 11/27/17 09:35 Dose: 6.25 mg Insulin Aspart (Novolog Vial Sliding Scale -) 1 vial SQ ACHS [facility] PRN Reason: Protocol Last Admin: 11/27/17 12:12 Dose: 2 units Lisinopril (Prinivil) 20 mg PO DAILY [facility] Last Admin: 11/27/17 09:36 Dose: 20 mg Sertraline HCl (Zoloft -) 100 mg PO DAILY [facility] Last Admin: 11/27/17 09:36 Dose: 100 mg Tramadol HCl (Ultram -) 50 mg PO Q6H PRN PRN Reason: PAIN LEVEL 7 - 10 Last Admin: 11/26/17 21:39 Dose: 50 mg GENERAL: NAD HEAD: Normal with no signs of trauma. EYES: PERRL, extraocular movements intact, sclera anicteric, conjunctiva clear. No ptosis. NECK: Trachea midline, full range of motion, supple. LUNGS: clear to auscultation bilaterally, no wheezes, no crackles, no accessory muscle use. HEART: Regular rate and rhythm, S1, S2 without murmur, rub or gallop. ABDOMEN: Soft, nontender, nondistended, normoactive bowel sounds, no guarding, no rebound, no hepatosplenomegaly, no masses. EXTREMITIES: 2+ pulses, warm, well-perfused, no edema. NEUROLOGICAL: mild left weakness SKIN: Warm, dry, normal turgor, no rashes or lesions noted Laboratory Results - last 24 hr 11/26/17 11/26/17 11/26/17 14:20 17:54 21:32 WBC RBC Hgb Hct MCV MCH MCHC RDW Plt Count MPV Neutrophils % Lymphocytes % Monocytes % Eosinophils % Basophils % Sodium Potassium Chloride Carbon Dioxide Anion Gap BUN Creatinine Creat Clearance w eGFR POC Glucometer 167 156 Random Glucose Hemoglobin A1c % 7.7 H Calcium Magnesium Total Bilirubin AST ALT Alkaline Phosphatase Troponin I Total Protein Albumin 11/26/17 11/26/17 11/27/17 21:45 21:45 05:53 WBC 8.8 RBC 5.43 Hgb 15.3 Hct 45.8 MCV 84.4 MCH 28.2 MCHC 33.4 RDW 15.5 Plt Count 269 MPV 7.5 Neutrophils % 64.0 Lymphocytes % 24.3 Monocytes % 6.3 Eosinophils % 4.9 H Basophils % 0.5 Sodium 138 Potassium 3.9 Chloride 104 Carbon Dioxide 28 Anion Gap 6 L BUN 16 Creatinine 0.7 Creat Clearance w eGFR > 60 POC Glucometer 199 Random Glucose 157 H D Hemoglobin A1c % Calcium 8.6 Magnesium 1.9 Total Bilirubin 0.4 D AST 25 ALT 44 Alkaline Phosphatase 59 Troponin I 0.11 H Total Protein 7.0 Albumin 3.6 11/27/17 11:28 WBC RBC Hgb Hct MCV MCH MCHC RDW Plt Count MPV Neutrophils % Lymphocytes % Monocytes % Eosinophils % Basophils % Sodium Potassium Chloride Carbon Dioxide Anion Gap BUN Creatinine Creat Clearance w eGFR POC Glucometer 192 Random Glucose Hemoglobin A1c % Calcium Magnesium Total Bilirubin AST ALT Alkaline Phosphatase Troponin I Total Protein Albumin Problem List - Problems (1) CVA (cerebral vascular accident) Code(s): I63.9 - CEREBRAL INFARCTION, UNSPECIFIED (2) Elevated troponin Code(s): R74.8 - ABNORMAL LEVELS OF OTHER SERUM ENZYMES (3) PAF (paroxysmal atrial fibrillation) Code(s): I48.0 - PAROXYSMAL ATRIAL FIBRILLATION (4) Sleep apnea Code(s): G47.30 - SLEEP APNEA, UNSPECIFIED (5) HTN (hypertension) Code(s): I10 - ESSENTIAL (PRIMARY) HYPERTENSION (6) HLD (hyperlipidemia) Code(s): E78.5 - HYPERLIPIDEMIA, UNSPECIFIED (7) Morbid obesity Code(s): E66.01 - MORBID (SEVERE) OBESITY DUE TO EXCESS CALORIES (8) COPD (chronic obstructive pulmonary disease) Code(s): J44.9 - CHRONIC OBSTRUCTIVE PULMONARY DISEASE, UNSPECIFIED IMP CVA PAF HTN COPD MIRIAM ON CPAP DM + TROPONIN MORBID OBESITY PLAN AC ASA CPAP [id number] AT NIGHT NEURO W/U PER NEUROLOGY INHALED BRONCHODILATORS PRN PFTS OUTPATIENT MAY NEED REPEAT TITRATION AFTER D/C DR LAAR
--- NOTE | 2017-11-27 15:06 | CONSULT ---
Consult - text type - Consultation Consultation Note: Asked to eval this 52M with PMH significnat for hypertension/hyperlipidemia/CVA /Afib(on Eliquis)/left hemiparesis/sleep apnea/implanted loop recorder. Admitted for acute onset of worsening left arm pain, with numbness of tingling of all his fingers. He is unable to make a fist, and his arm is painful to movement. He denies any headaches, visual defects, fevers, chills, chest pain or shortness of breath. He denies any trauma to his left arm. Xrays showed possible left thumb distal phalanx fracture. PMH: as above Meds: reviewed in chart All: NKDA SH: prior smoker/denies etoh/ivda ROS: denies recent fevers/chills/weight loss PE: obese male, awake/alert/ oriemted x 3 lying comfortably in bed unable to make a full fist LUE generalized weakness throughout from prior CVA RUE motor intact LLE with mild weakness, also generalized RLE ROM without pain, motor intact left thumb distal phalanx nttp, rom without pain Xrays: left thumb with bony osteophytes and possible fx visible on oblique view only ImP: Clinical exam shows no evidence of fracture of left thumb -no care needed -f/u prn
--- NOTE | 2017-11-27 15:53 | PN ---
Progress Note (short form) - Note Progress Note: Subjective: The patient was seen and examined at the bedside, he has complaints that he still cannot make a fist with his left hand Current Medications Generic Name Dose Route Start Last Admin Trade Name Freq PRN Reason Stop Dose Admin Acetaminophen 650 mg 11/25/17 20:53 11/26/17 09:54 Tylenol - PO 650 mg Q6H PRN Administration PAIN LEVEL 4 - 6 Albuterol Sulfate 1 amp 11/25/17 17:34 Ventolin 0.083% Nebulizer Soln - NEB Q8H PRN SHORT OF BREATH/WHEEZING Apixaban 5 mg 11/25/17 22:00 11/27/17 09:35 Eliquis - PO 5 mg BID [facility] Administration Aspirin 81 mg 11/26/17 10:00 11/27/17 09:35 Ecotrin - PO 81 mg DAILY [facility] Administration Atorvastatin Calcium 80 mg 11/25/17 22:00 11/26/17 21:36 Lipitor - PO 80 mg HS [facility] Administration Bupropion HCl 300 mg 11/26/17 10:00 11/27/17 09:37 Wellbutrin Xl - PO 300 mg DAILY [facility] Administration Carvedilol 6.25 mg 11/25/17 22:00 11/27/17 09:35 Coreg - PO 6.25 mg BID [facility] Administration Insulin Aspart 1 vial 11/25/17 22:00 11/27/17 12:12 Novolog Vial Sliding Scale - SQ 2 units ACHS [facility] Administration Protocol Lisinopril 20 mg 11/26/17 10:00 11/27/17 09:36 Prinivil PO 20 mg DAILY [facility] Administration Sertraline HCl 100 mg 11/26/17 10:00 11/27/17 09:36 Zoloft - PO 100 mg DAILY [facility] Administration Tramadol HCl 50 mg 11/25/17 20:52 11/26/17 21:39 Ultram - PO 50 mg Q6H PRN Administration PAIN LEVEL 7 - 10 Objective: Vital Signs Period Temp Pulse Resp BP Sys/Yoder Pulse Ox Last 24 Hr 98.1 F-99.3 F 81-102 20-24 108-159/49-78 94-94 Physical Exam: General: NAD, A&Ox3 Lungs: CTA bilaterally Heart: RRR, S1S2 Abd: Soft, non-tender, non-distended. Normoactive bowel sounds CBCD WBC 8.8 K/mm3 (4.0-10.0) 11/26/17 21:45 RBC 5.43 M/mm3 (4.00-5.60) 11/26/17 21:45 Hgb 15.3 GM/dL (11.7-16.9) 11/26/17 21:45 Hct 45.8 % (35.4-49) 11/26/17 21:45 MCV 84.4 fl (80-96) 11/26/17 21:45 MCHC 33.4 g/dl (32.0-35.9) 11/26/17 21:45 RDW 15.5 % (11.9-15.9) 11/26/17 21:45 Plt Count 269 K/MM3 (134-434) 11/26/17 21:45 MPV 7.5 fl (7.5-11.1) 11/26/17 21:45 CMP Sodium 138 mmol/L (136-145) 11/26/17 21:45 Potassium 3.9 mmol/L (3.5-5.1) 11/26/17 21:45 Chloride 104 mmol/L (98-107) 11/26/17 21:45 Carbon Dioxide 28 mmol/L (21-32) 11/26/17 21:45 Anion Gap 6 (8-16) L 11/26/17 21:45 BUN 16 mg/dL (7-18) 11/26/17 21:45 Creatinine 0.7 mg/dL (0.7-1.3) 11/26/17 21:45 Creat Clearance w eGFR > 60 (>60) 11/26/17 21:45 Random Glucose 157 mg/dL (74-106) H D 11/26/17 21:45 Calcium 8.6 mg/dL (8.5-10.1) 11/26/17 21:45 Total Bilirubin 0.4 mg/dL (0.2-1.0) D 11/26/17 21:45 AST 25 U/L (15-37) 11/26/17 21:45 ALT 44 U/L (12-78) 11/26/17 21:45 Alkaline Phosphatase 59 U/L (45-117) 11/26/17 21:45 Total Protein 7.0 g/dl (6.4-8.2) 11/26/17 21:45 Albumin 3.6 g/dl (3.4-5.0) 11/26/17 21:45 CARDIAC ENZYMES Creatine Kinase 180 IU/L (39-308) 11/25/17 15:45 Troponin I 0.11 ng/ml (0.00-0.05) H 11/26/17 21:45 Assessment: This is a 52 year old male with PMHx of HTN, hyperlipidemia, paroxysmal a.fib, CVA, dm, sleep apnea, who presented to the ED with left hand pain/weakness. Plan: 1) Left arm pain/weakness - R/o CVA vs. TIA - Head CT with contrast: 0.7cm nonspecific hypodense focus seen within the left cerebellar hemisphere - Continue ASA - Continue Eliquis - F/u EEG - Speech consult appreciated - Appreciate neuro consult 2) Borderline trops - No consistent with acs per cards - No complaints of chest pain - ECHO reviewed - Appreciate cards consult 3) Paroxysmal a.fib - Continue Eliquis - Continue Coreg 4) Left hand pain - X-ray with left thumb bony osteophyte and possible fracture - Per ortho, no evidence of fracture of the left thumb - No care needed - Appreciate ortho consult 5) DM - BGM ACHS - ISS ACHS 6) F/E/N: - Regular diet - Monitor electrolytes 7) Prophylaxis: - On Eliquis 8) Dispo: - Once cleared by neurology CODE STATUS: FULL CODE Visit type - Emergency Visit Emergency Visit: Yes ED Registration Date: 11/25/17 Care time: The patient presented to the Emergency Department on the above date and was hospitalized for further evaluation of their emergent condition. - New Patient This patient is new to me today: Yes Date on this admission: 11/27/17 - Critical Care Critical Care patient: No
--- NOTE | 2017-11-27 16:11 | PN ---
Progress Note (short form) - Note Progress Note: cc continue to have left hand pain, leg weakness and drooling resolved. 52 year old male hsitory of DM,HTN , HLD Atrial fibrillation, with mild residual left sided residual deficit. He taks aspirin statin ,eliquis and lipitor at home. He has CEA in past on rightside. He has xray of left wrist and being seen by ortho. He cant have mri, His carotid ultrasound is unremarkable. He feels better and wishes to go home. 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- and left lower extremity is grade 4 specially hip flexion and knee extension sensation is normal ct head , carotid ultrasouns id normal Assessment- Suspect stroke on right mca , with worsening of left arm and leg weakness,leg symptoms resolved and continue to have left wrsit and hand pain and unable to flex finger, orthopedic is going to see him Plan- continue aspirin and eliquis , and continue lipitor 80 mg once a day - Since mri of brain cant be done , repeat ct head can be done - once ct head is unremarkable, He is cleared to be discharged from Neuro Point of view Thanking you so much William Knight MD
--- NOTE | 2017-11-27 16:35 | DS ---
Physical Examination Vital Signs: Vital Signs Temperature 98.6 F 11/27/17 14:29 Pulse Rate 82 11/27/17 14:29 Respiratory Rate 20 11/27/17 14:29 Blood Pressure 108/49 11/27/17 14:29 O2 Sat by Pulse Oximetry (%) 94 L 11/27/17 08:00 Labs: CBC, BMP 11/26/17 21:45 11/26/17 21:45 Discharge Summary Reason For Visit: ELEVATED TROPONIN/ TRANSIENT CEREBAL ISCHEMIA Current Active Problems COPD (chronic obstructive pulmonary disease) (Acute) CVA (cerebral vascular accident) (Acute) Elevated troponin (Acute) HLD (hyperlipidemia) (Acute) HTN (hypertension) (Acute) Morbid obesity (Acute) PAF (paroxysmal atrial fibrillation) (Acute) Sleep apnea (Acute) TIA (transient ischemic attack) (Acute) Hospital Course: Discussed with Dr. Knight, recommendation to discharge Condition: Improved - Instructions Diet, Activity, Other Instructions: Please return to the ED with new, persistent, or worsening symptoms. Please follow-up with providers as indicated. Referrals: William Knight MD [Staff Physician] - (Please follow-up with Dr. Knight for further evaluation and to schedule a possible outpatient EEG within 1 week.) Ede Landeros MD [Staff Physician] - 1 Week Michele Gaming MD [Staff Physician] - (Please follow-up with cardiology within 1 week for further management of your paroxysmal a.fib.) Disposition: HOME - Home Medications Comprehensive Discharge Medication List: Ambulatory Orders Apixaban [Eliquis] 5 mg PO BID 11/25/17 Armodafinil [Nuvigil] 200 mg PO DAILY 11/25/17 Aspirin [ASA -] 325 mg PO DAILY 11/25/17 Atorvastatin Ca [Lipitor] 40 mg PO DAILY 11/25/17 Bupropion HCl [Wellbutrin Xl] 300 mg PO DAILY 11/25/17 Carvedilol [Coreg] 6.25 mg PO BID 11/25/17 Empagliflozin [Jardiance] 10 mg PO DAILY 11/25/17 Fenofibrate,Micronized [Fenofibrate] 130 mg PO DAILY 11/25/17 Insulin Regular, Human [Humulin R U-500 Kwikpen] 120 unit SQ BID 11/25/17 Lisinopril 20 mg PO DAILY 11/25/17 Sennosides [Senna] 8.6 mg PO DAILY 11/25/17 Sertraline HCl 100 mg PO DAILY 11/25/17 metFORMIN XR [Glucophage *Xr* -] 750 mg PO DAILY 11/25/17 - Discharge Referral Referred to [facility] No
[2017-11-27 18:13] VITALS: BP 161/84
== END 2017-11-27 18:00 | disposition home or self-care (01) ==
LOC: JER 14:15 → JERBED 16:58 → J4S 23:01
PROVIDERS: ADMIT Hospitalist; ATTEND Registered Nurse
PROC: 3E013VG Introduction of Insulin into Subcutaneous Tissue, Percutaneous Approach (ICD-10-PCS; principal; 2017-11-25)
PROC: 3E0F7GC Introduction of Other Therapeutic Substance into Respiratory Tract, Via Natural or Artificial Opening (ICD-10-PCS; 2017-11-25)
DX: I63.9 Cerebral infarction, unspecified (principal); G45.9 Transient cerebral ischemic attack, unspecified; R77.8 Other specified abnormalities of plasma proteins; I10 Essential (primary) hypertension; E78.5 Hyperlipidemia, unspecified; I48.0 Paroxysmal atrial fibrillation; I69.354 Hemiplegia and hemiparesis following cerebral infarction affecting left non-dominant side; G47.33 Obstructive sleep apnea (adult) (pediatric); E11.9 Type 2 diabetes mellitus without complications; E66.01 Morbid (severe) obesity due to excess calories; J44.9 Chronic obstructive pulmonary disease, unspecified; Z68.41 Body mass index [BMI] 40.0-44.9, adult; Z79.4 Long term (current) use of insulin; Z79.82 Long term (current) use of aspirin; Z79.84 Long term (current) use of oral hypoglycemic drugs; Z79.01 Long term (current) use of anticoagulants; Z99.89 Dependence on other enabling machines and devices
CPT/HCPCS: 36415; 70450-TC; 70460-TC; 71045-TC-FY; 73090-TC-LT-FY; 73130-TC-LR-FY; 80053; 81003; 81015; 82465; 82550; 82553; 82962; 83036; 83718; 83721; 83735; 84478; 84484; 85025; 85610; 93005; 93010; 93306-TC; 93880-TC; 93971; 97116-GP; 97161-GP; 99282-25; G0378